=== PATIENT | male | born 1950 | race Caucasian/White ===

== ENCOUNTER 2017-03-31 08:49 | Emergency (ER) | payer MEDICARE ==
[2017-03-31 09:52] LABS: PLATELET COUNT 157 x10^3mcL (130-400); RED CELL DISTRIBUTION WIDTH 14.1 % (11.5-14.5)
[2017-03-31 10:01] LABS: CARBON DIOXIDE 25.1 mmol/L (21-32); CHLORIDE SERUM 99 mmol/L (98-107); CREATININE SERUM 1.1 mg/dL (0.7-1.3); GFR1 > 60 mL/min; GLUCOSE SERUM 146 mg/dL (74-106); POTASSIUM SERUM 3.4 mmol/L (3.5-5.1); SODIUM SERUM 132 mmol/L (136-145)
[2017-03-31 10:05] LABS: ALKALINE PHOSPHATASE 79 U/L (46-116); ALT/SGPT 72 U/L (16-63); AMYLASE 30 U/L (25-115); AST/SGOT 29 U/L (15-37); BILIRUBIN TOTAL 0.7 mg/dL (0.20-1.00); CHOLESTEROL 140 mg/dL (<200); HDL CHOLESTEROL 47 mg/dL (40-60); LIPASE 70 IU/L (73-393); TOTAL PROTEIN, SERUM 7.1 g/dL (6.4-8.2)
[2017-03-31 10:07] LABS: ALBUMIN 2.9 g/dL (3.4-5.0)
[2017-03-31 10:29] LABS: microscopic required? YES; urine erythrocyte 2+ (NEGATIVE)
[2017-03-31 10:43] LABS: AMPHETAMINE QUAL UR NONE DETECTED (NEG <=1000)
[2017-03-31 11:14] LABS: BAND NEUTROPHIL 5 % (0-10); BASOPHIL 0 % (0-2); MONOCYTE 2 % (0-7); SEGMENTED NEUTROPHILS 89 % (37-75)
[2017-03-31 11:15] LABS: PLATELET MORPHOLOGY PLATELETS NORMAL
[2017-03-31 15:00] VITALS: BP 125/83
== END 2017-03-31 15:08 | disposition home or self-care (01) ==
LOC: ED 08:49
PROVIDERS: Emergency Medicine
DX: N39.0 Urinary tract infection, site not specified (principal); N40.0 Benign prostatic hyperplasia without lower urinary tract symptoms; E78.00 Pure hypercholesterolemia, unspecified; I10 Essential (primary) hypertension; Z88.0 Allergy status to penicillin
CPT/HCPCS: 83880; J2550; J3490; J7030; Q0092; Q9967